=== PATIENT | male | born 1975 | race Caucasian/White ===

== ENCOUNTER 2017-08-23 16:22 | Emergency (ER) | payer SELFPAY ==
--- NOTE | 2017-08-23 16:34 | ED Physician Documentation ---
General Adult - HISTORIAN Historian: patient - HPI Stated Complaint: NVD Chief Complaint: Nausea,Vomiting,Diarrhea Onset: hours (5) Timing: still present, better Severity: mild Modifying Factors: NONE Context: NONE Quality: Abdominal Pain and headache along with vomting Further Comments: yes (Per patients family (at bedside) and pt he ate deer meat that had been hanging for 2 days. He had a headahce (per his report) and he started to lay down and had aches "all over". He states that he then got up and went to the bathroom and vomiting started and he reports he did not get up from the bathroom floor since. He denies diarrhea although states he has to have a diarrhea stool and did so in the ER room) Last known Well Date: 08/23/17 Last Known Well Time: 10:00 Last known Well Code/Unknown Code: Unknown - ROS CONST: sweating, chills. denies: fever EYES/ENT: denies: problems with vision CVS/RESP: denies: chest pain, shortness of breath, cough GI/: abdominal pain, vomiting, nausea, diarrhea. denies: problems urinating MS/SKIN/LYMPH: none NEURO/PSYCH: headache (although mom at [facility] states he has been complaining of headache for months ). denies: fainting, dizziness, difficulty walking, difficulty with speech - PAST HX Past History: none Other History: none Surgeries/Procedures: none Immunizations: referred to PCP Allergies/Adverse Reactions: Allergies Allergy/AdvReac Type Severity Reaction Status Date / Time No Known Allergies Allergy Verified 04/03/16 13:18 Home Medications: Ambulatory Orders Medication Instructions Recorded Ciprofloxacin HCl [Cipro] 500 mg PO BID #20 tablet 08/23/17 Ondansetron HCl/Pf [Zofran 4 mg/2 4 mg IM Q6 #20 vial 08/23/17 ml] metroNIDAZOLE [Flagyl] 500 mg PO BID #20 tablet 08/23/17 - SOCIAL HX Smoking History: cigarettes Alcohol Use: none Drug Use: marijuana - FAMILY HX Family History: No - VITAL SIGNS Vital Signs: Vital Signs Temp Pulse Resp BP Pulse Ox 150/79 04/03/16 13:01 - REVIEWED ASSESSMENTS Nursing Assessment Reviewed: Yes Vitals Reviewed: Yes Progress - Progress Progress: results explained : he is still complaining of nausea and would like a med for that before discharge. DG ED Results Lab/Radiology - Radiology Radiology Impressions: CT Abdomen/pelvis without contrast History: PATIENT STATES VOMITING BLOOD SINCE 1200 TODAY No similar comparison studies Clear lung bases. No free intraperitoneal air. No acute osseous pathology Sclerotic focus right femur The noncontrast liver spleen, adrenal glands are within normal limits. Small amount of sludge is present in the gallbladder. The pancreas is within normal limits. No hydronephrosis bilaterally. There is mild wall thickening of the descending, transverse and right colon with fat stranding in the abdomen and pelvis. Also noted are several dilated fluid-filled loops of small bowel. The appendix is not identified in its entirety, it is fluid-filled and dilated, no localized abscess in the right lower abdomen. Impression: 1. Dilated fluid-filled multiple loops of small bowel and colon. There is minimal wall thickening of the colon, fat stranding in the abdomen and pelvis, findings are suggestive of enterocolitis 2. Appendix is not identified in its entirety, no localized abscess in the right lower abdomen 3. No biliary dilatation. No hydronephrosis HISTORY: 42-year-old male with headache, dizziness, blurry vision. COMPARISON: None available TECHNIQUE: Noncontrast axial CT images of the head were performed. Coronal and sagittal reformatted images were obtained. FINDINGS: No intracranial hemorrhage, mass, midline shift, hydrocephalus, or evidence of acute large vessel infarct. The optic globes are symmetric. No evidence of mass or abnormal attenuation in the post-septal orbital fat. The mastoid air cells, middle ear spaces, and partially visualized paranasal sinuses are clear. No cranial fracture or scalp edema. IMPRESSION: Unremarkable noncontrast CT of the head. Electronically signed on Aug 23, 2017 6:04:52 PM EXPLOSIVES WORKER by: Gino Berrios General Adult Physical Exam - PHYSICAL EXAM GENERAL APPEARANCE: no distress EENT: eye inspection normal, ENT inspection normal NECK: normal inspection RESPIRATORY: no resp distress, chest non-tender, breath sounds normal CVS: reg rate & rhythm, heart sounds normal, equal pulses ABDOMEN: soft, normal bowel sounds, no distension, tenderness (general ) SKIN: warm/dry, pallor EXTREMITIES: non-tender NEURO: oriented X3, CN's nml as tested, motor nml, sensation nml Discharge Clincal Impression: Gastroenteritis Prescriptions: Ciprofloxacin HCl [Cipro] 500 mg PO BID #20 tablet metroNIDAZOLE [Flagyl] 500 mg PO BID #20 tablet Ondansetron HCl/Pf [Zofran 4 mg/2 ml] 4 mg IM Q6 #20 vial Referrals: Primary Doctor,No [Primary Care Provider] - 2 Days Additional Instructions: Encouraged to see PCP for headaches and follow up on GI symptoms Condition: Stable Disposition: 01 HOME, SELF-CARE Decision to Admit: NO Date of Decison to Admit: 08/23/17 Decision Time: 18:14
[2017-08-23] MEDS ORDERED: 0.9 % SODIUM CHLORIDE 1,000 ML IV ONE (16:38)
[2017-08-23] MEDS ORDERED: KETOROLAC TROMETHAMINE 30 MG/1ML VIAL IVP ONE (16:44)
[2017-08-23 16:47] LABS: BASOPHILS % 0.3 (0.0-1.5); EOSINOPHILS % 3.7 % (0.0-6.8); MEAN CORPUSCULAR HEMOGLOBIN 32.3 pg (28.0-34.0); MEAN CORPUSCULAR VOLUME 95.8 fl (80.0-100.0); MONOCYTES % 3.5 % (0.0-11.0); NEUTROPHILS # 11.2 # k/uL (1.4-7.7)
[2017-08-23 16:56] LABS: eGFR (African) > 60; eGFR (Non-African) > 60
--- NOTE | 2017-08-23 18:02 | Diagnostic Imaging Report ---
[facility] [address] [facility] [address] [place], [place]. 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 No free intraperitoneal air. No acute osseous pathology Sclerotic focus right femur The noncontrast liver spleen, adrenal glands are within normal limits. Small amount of sludge is present in the gallbladder. The pancreas is within normal limits. No hydronephrosis bilaterally. There is mild wall thickening of the descending, transverse and right colon with fat stranding in the abdomen and pelvis. Also noted are several dilated fluid-filled loops of small bowel. The appendix is not identified in its entirety, it is fluid-filled and dilated, no localized abscess in the right lower abdomen. Impression: 1. Dilated fluid-filled multiple loops of small bowel and colon. There is minimal wall thickening of the colon, fat stranding in the abdomen and pelvis, findings are suggestive of enterocolitis 2. Appendix is not identified in its entirety, no localized abscess in the right lower abdomen 3. No biliary dilatation. No hydronephrosis Electronically signed on Aug 23, 2017 5:15:12 PM BARBER OR BEAUTY [employer] MANAGER by: Princess RODRIGUEZ
--- NOTE | 2017-08-23 18:05 | Diagnostic Imaging Report ---
[facility] [address] [facility] [address] [place], [place]. 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 COMPARISON: None available TECHNIQUE: Noncontrast axial CT images of the head were performed. Coronal and sagittal reformatted images were obtained. FINDINGS: No intracranial hemorrhage, mass, midline shift, hydrocephalus, or evidence of acute large vessel infarct. The optic globes are symmetric. No evidence of mass or abnormal attenuation in the post-septal orbital fat. The mastoid air cells, middle ear spaces, and partially visualized paranasal sinuses are clear. No cranial fracture or scalp edema. IMPRESSION: Unremarkable noncontrast CT of the head. Electronically signed on Aug 23, 2017 6:04:52 PM PATTERN AND CHAIN MAKER by: Gino RODRIGUEZ
[2017-08-23] MEDS ORDERED: ONDANSETRON HCL/PF 4 MG/ 2ML VIAL IVP ONE (18:12)
[2017-08-23 18:59] VITALS: BP 114/64
== END 2017-08-23 18:39 | disposition home or self-care (01) ==
LOC: ED 16:22
DX: K52.9 Noninfective gastroenteritis and colitis, unspecified (principal)
CPT/HCPCS: 70450; 74176; 80053; 80320; 85025; 87329; J1885; J2405; J7030; 96361; 96374; 96375; 99283; G0480; S1016

== ENCOUNTER 2017-12-27 16:26 | Emergency (ER) | payer OTHER ==
[2017-12-27] MEDS ORDERED: Lidocaine 1% 5ml(IM or SUTURE)(PAIN CLINIC) IJ ONE (16:37)
--- NOTE | 2017-12-27 16:37 | ED Physician Documentation ---
Upper Extremity Injury - HISTORIAN Historian: patient - HPI Chief Complaint: Upper Extremity Injury Additional Information: patient was using a rachet wrench when it slipped and he hit a bolt sustaining laceration. Onset: just prior to arrival Where: home Severity: mild Context: blow Associated Symptoms: denies: tingling, numbness distally, feeling loss Modifying Factors: pain on movement - ROS CONST: no problems. denies: fever, chills - PAST HX Past History: Lt handed Immunizations: tetanus (2 years ago) Allergies/Adverse Reactions: Allergies Allergy/AdvReac Type Severity Reaction Status Date / Time No Known Allergies Allergy Verified 04/03/16 13:18 Home Medications: Ambulatory Orders Medication Instructions Recorded Ciprofloxacin HCl [Cipro] 500 mg PO BID #20 tablet 08/23/17 Ondansetron HCl/Pf [Zofran 4 mg/2 4 mg IM Q6 #20 vial 08/23/17 ml] metroNIDAZOLE [Flagyl] 500 mg PO BID #20 tablet 08/23/17 - SOCIAL HX Smoking History: less than 1 pack/day Alcohol Use: rarely Drug Use: marijuana - FAMILY HX Family History: no significant history - VITAL SIGNS Vital Signs: Vital Signs Temp Pulse Resp BP Pulse Ox 114/64 08/23/17 18:56 - REVIEWED ASSESSMENTS Nursing Assessment Reviewed: Yes Vitals Reviewed: Yes Procedures Wound Location: upper extremity (right 3rd digit, flexure surface over PIP joint area) Wound's Depth, Shape: superficial, linear Betadine Prep?: No (hexadyne) Anesthesia: 1% Lidocaine Volume of Anesthetic: 1.2ml Wound Debrided: none Wound Repaired With: sutures Suture Size/Type: 5:0 Number of Sutures: 4 Layer Closure?: No ED Results Lab/Radiology - Radiology Radiology Impressions: Examination: Plain film left tibia/fibula History: PT STATES LT ANTERIOR LEG PAIN AFTER JUMPING ON TRAMPOLINE X 4 WEEKS AGO (Hx) Comparison exams: None available Findings: 2 views of the left tibia fibula demonstrates normal cortical margins. No evidence for fracture line. Normal epiphyses. No soft tissue abnormality. Impression: No acute osseous abnormality - Orders Orders: ED Orders Category Date Time Status Lidocaine 1% 5ml(IM or SUTURE) [Xylocaine] Med 12/27/17 16:37 Discontinued 50 mg IJ NOW ONE Upper Extremity Injury Physic - Physical Exam General Appearance: no acute distress, alert Hand: non-tender, soft tissue tenderness, swelling (PIP joint of R 3rd digit) Wrist: normal inspection, non-tender Neuro/Vascular/Tendon: motor nml (normal extension fo fing against pressure), sensation nml Skin: warm,dry, other (laceration, inspected, no involvement of the tendon or joint capsule) Head/ENT: other (impacted cerumen bilaterally) Resp/CVS: chest non-tender, breath sounds nml, heart sounds nml, no resp. distress, lungs clear, reg. rate & rhythm Discharge Clincal Impression: Finger laceration Referrals: Primary Doctor,No [Primary Care Provider] - 2 Days Additional Instructions: Keep finger clean and dry. Have sutures removed in seven days. Watch for any signs of infection such as redness, purulent drainage or red streaking up the hand/arm. Condition: Stable Disposition: 01 HOME, SELF-CARE Decision to Admit: NO Date of Decison to Admit: 12/27/17 Decision Time: 17:22
== END 2017-12-27 17:30 | disposition home or self-care (01) ==
LOC: ED 16:26
DX: S61.212A Laceration without foreign body of right middle finger without damage to nail, initial encounter (principal); W45.0XXA Nail entering through skin, initial encounter; W22.8XXA Striking against or struck by other objects, initial encounter; Y93.9 Activity, unspecified; Y92.9 Unspecified place or not applicable; Y99.9 Unspecified external cause status
CPT/HCPCS: 12002; 99283

== ENCOUNTER 2018-04-06 14:52 | Emergency (ER) | payer OTHER ==
[2018-04-06 15:03] VITALS: BP 120/72
[2018-04-06] MEDS ORDERED: methylPREDNISolone SOD SUCC 40 MG/ML VIAL IM ONE (15:05)
--- NOTE | 2018-04-06 15:07 | ED Physician Documentation ---
General Adult - HISTORIAN Historian: patient - HPI Stated Complaint: Rash Chief Complaint: General Adult Onset: days ago (1) Timing: still present Severity: moderate Further Comments: yes (Pt is a 42 yo male with a pruritic rash in both axilla. Pt used a new deodorant which caused the itchy rash he says. This happened in the past with another deoderant, and he received steroid shot to tx it, pt says. No difficulty breathing or swallowing.) - ROS CONST: no problems EYES/ENT: none CVS/RESP: none GI/: none MS/SKIN/LYMPH: rash - PAST HX Past History: none Other History: none Allergies/Adverse Reactions: Allergies Allergy/AdvReac Type Severity Reaction Status Date / Time No Known Allergies Allergy Verified 04/06/18 15:04 Home Medications: Ambulatory Orders Medication Instructions Recorded NK [NK] 04/06/18 - SOCIAL HX Smoking History: cigarettes - FAMILY HX Family History: No - VITAL SIGNS Vital Signs: Vital Signs Temp Pulse Resp BP Pulse Ox 98.3 F 101 H 18 120/72 96 04/06/18 14:59 04/06/18 14:59 04/06/18 14:59 04/06/18 14:59 04/06/18 14:59 - REVIEWED ASSESSMENTS Nursing Assessment Reviewed: Yes Vitals Reviewed: Yes Progress - Progress Progress: Solu-medrol 80 mg IM in ER. Rx Prednisone 50 mg. Take one tablet by mouth once daily for 4 days. Start on 04/07/18. May take [id number] Benadryl and Pepcid (or Zantac) for itch. Use as directed. ED Results Lab/Radiology - Orders Orders: ED Orders Category Date Time Status methylPREDNISolone SOD SUCC [Solu-MEDROL] Med 04/06/18 15:05 Once 80 mg IM NOW ONE General Adult Physical Exam - PHYSICAL EXAM GENERAL APPEARANCE: no distress EENT: pharynx normal NECK: normal inspection, supple RESPIRATORY: no resp distress, chest non-tender, breath sounds normal CVS: reg rate & rhythm, heart sounds normal SKIN: other (superficial erythema, encompassing both axilla) EXTREMITIES: non-tender, normal range of motion, no evidence of injury, no edema NEURO: oriented X3, motor nml, sensation nml Discharge Clincal Impression: Allergy Qualifiers: Encounter type: initial encounter Qualified Code(s): T78.40XA - Allergy, unspecified, initial encounter Contact dermatitis Qualifiers: Contact dermatitis type: unspecified Contact dermatitis trigger: unspecified trigger Qualified Code(s): L25.9 - Unspecified contact dermatitis, unspecified cause Referrals: Primary Doctor,No [Primary Care Provider] - 2 Days Condition: Good Disposition: 01 HOME, SELF-CARE Decision to Admit: NO Decision Time: 15:07
== END 2018-04-06 15:18 | disposition home or self-care (01) ==
LOC: ED 14:52
DX: L25.9 Unspecified contact dermatitis, unspecified cause (principal)
CPT/HCPCS: 96372; 99284; J2920; J1030